=== PATIENT | male | born 1985 | race Caucasian/White ===

== ENCOUNTER 2020-04-05 09:57 | Emergency (ER) | payer OTHER ==
[2020-04-05] MEDS ORDERED: IBUPROFEN 600 MG TABLET (FP) PO ONE ×2 (10:10→10:57)
--- NOTE | 2020-04-05 10:11 | PDOC ---
Rapid Medical Evaluation Chief Complaint: Pain, Acute Time Seen by Provider: 04/05/20 10:08 Medical Evaluation: Allergies Allergy/AdvReac Type Severity Reaction Status Date / Time No Known Allergies Allergy Verified 04/05/20 10:03 Vital Signs Temp Pulse Resp BP Pulse Ox 98.4 F 89 16 129/88 99 04/05/20 10:04 04/05/20 10:04 04/05/20 10:04 04/05/20 10:04 04/05/20 10:04 04/05/20 10:08 The patient presents with L elbow pain starting just prior to arrival. 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 He is reporting pain in the affected extremity and he cannot fully extend the arm. Denies numbness, tingling and weakness to the affected extremity. Exam: distal pulses 2+, DROM to the L elbow, unable to fully extend Orders: X-ray, Motrin Pt to proceed to the ER for further evaluation Discharge Disposition - Diagnosis Elbow pain Qualifiers: Laterality: left Qualified Code(s): M25.522 - Pain in left elbow - Referrals - Patient Instructions - Post Discharge Activity
--- NOTE | 2020-04-05 10:27 | PDOC ---
Attending Attestation - Resident Resident Name: Raymond Aguilera - HPI HPI: 04/05/20 12:04 Pt presents to the ED complaining of the acute onset of L elbow pain after slip and fall down steps today while climbing down from a fire truck. Denies other injuries. Complaining of pain only when elbow is extended. - Physicial Exam PE: 04/05/20 12:11 Agree with resident exam. Patient is alert and oriented x 3 and in no acute distress. L elbow--+ effusion. No deformity. Neurovascularly intact. - Medical Decision Making 04/05/20 12:12 Pt presents to the ED complaining of the acute onset of L elbow pain and sw elling after fall. Denies other injuries. No fracture or dislocation on xray. Will discharge home with instructions to return to the ED for worsening symptoms. Will give follow up with orthopedics. Discharge - Discharge Information Problems reviewed: Yes Clinical Impression/Diagnosis: Elbow pain Qualifiers: Laterality: left Qualified Code(s): M25.522 - Pain in left elbow Disposition: HOME - Follow up/Referral Referrals: Teo Nielsen MD [Staff Physician] - - Patient Discharge Instructions Patient Printed Discharge Instructions: Elbow Sprain, DI for Elbow Sprain Additional Instructions: You were seen in the emergency department for your elbow pain. It appears to be a sprain. We recommend you follow up with the orthopedics doctor in 1 week after discharge for follow care and management. You may need an MRI for additional diagnostic work up. Please take ibuprofen at home, 600 mg every 6 hours as needed for pain. Please return to the emergency department if you have worsening symptoms or new concerning symptoms. Thank you . - Post Discharge Activity Work/Back to School Note: Back to Work
[2020-04-05 10:36] VITALS: TEMP 98.4; BMI 35.4
--- NOTE | 2020-04-05 11:15 | PDOC ---
History of Present Illness - General Chief Complaint: Pain, Acute Stated Complaint: ARM INJURY Time Seen by Provider: 04/05/20 10:08 History Source: Patient Exam Limitations: No Limitations - History of Present Illness Initial Comments: 35 yo M with no pmhx presents to the emergency department with left elbow pain. Per the patient, he was climbing on a ladder when he slipped. He reached out with his left arm and grabbed with his hand on the ladder step, breaking his fall. Denies head trauma and LOC. The patient states after the event, his left elbow began hurting immediately with swelling. In addition, the pain exacerbates when he extends the arm and is better while flexed. Denies the following: fevers, chills, arm tingling, arm numbness, shoulder pain, neck pain, headaches, chest pain, SOB, and abdominal pain. Allergies: NKDA Past History - Medical History Allergies/Adverse Reactions: Allergies Allergy/AdvReac Type Severity Reaction Status Date / Time No Known Allergies Allergy Verified 04/05/20 10:03 Home Medications: Ambulatory Orders No Home Medications 0 dose .ROUTE UTDICT 04/24/14 COPD: No - Immunization History Immunization Up to Date: Yes - Psycho-Social/Smoking History Smoking Status: No Smoking History: Never smoked Number of Cigarettes Smoked Daily: 0 - Substance Abuse Hx (Audit-C & DAST Scrn) How often the patient has a drink containing alcohol: Never Score: In Men: 4 or > Positive; In Women: 3 or > Positive: 0 Screen Result (Pos requires Nsg. Audit-10AR): Negative In the last yr the pt used illegal drug/Rx for NonMed reason: No Score: Yes response is considered Positive: 0 Screen Result (Positive result requires Nsg. DAST-10): Negative Review of Systems - Review of Systems Able to Perform ROS?: Yes Is the patient limited Citizen Of [place] proficient: No Constitutional: No: Chills, Diaphoresis, Fever, Weakness HEENTM: No: Eye Pain, Ear Pain, Nose Pain, Throat Pain Respiratory: No: Cough, Shortness of Breath Cardiac (ROS): No: Chest Pain, Lightheadedness ABD/GI: No: Constipated, Diarrhea, Nausea, Rectal Bleeding, Vomiting, Tarry Stools : No: Dysuria, Hematuria Musculoskeletal: Yes: Joint Pain (left eyebrow). No: Back Pain, Neck Pain Integumentary: No: Bruising, Rash Neurological: No: Headache, Numbness, Tingling, Tremors Psychiatric: No: Change in Appetite Endocrine: No: Unexplained Weight Loss Hematologic/Lymphatic: No: Anemia *Physical Exam - Vital Signs Last Vital Signs Temp Pulse Resp BP Pulse Ox 98.4 F 89 16 129/88 99 04/05/20 10:04 04/05/20 10:04 04/05/20 10:04 04/05/20 10:04/05/20 10:04 - Physical Exam General Appearance: Yes: Nourished, Appropriately Dressed. No: Apparent Distress, Intoxicated HEENT: positive: EOMI, CARMITA, Normal Voice, Symmetrical, Pharynx Normal, Hearing Grossly Normal. negative: Pale Conjunctivae, Scleral Icterus (R), Scleral Icterus (L), Muffled/Hoarse voice, Pharyngeal Erythema, Tonsillar Exudate, Tonsillar Erythema, Nasal Congestion, Rhinorrhea, Sinus Tenderness, Excessive drooling Neck: positive: Trachea midline, Supple. negative: Tender, Lymphadenopathy (R), Lymphadenopathy (L), Tender lateral, Tender midline Respiratory/Chest: positive: Lungs Clear, Normal Breath Sounds. negative: Chest Tender, Respiratory Distress, Accessory Muscle Use, Crackles, Rales, Rhonchi, Stridor, Wheezing Cardiovascular: positive: Regular Rhythm, Regular Rate, S1, S2. negative: Systolic Murmur Gastrointestinal/Abdominal: positive: Normal Bowel Sounds, Flat, Soft. negative: Tender, Distended, Guarding, Rebound Musculoskeletal: negative: CVA Tenderness, Vertebral Tenderness Extremity: positive: Normal Capillary Refill, Tender (along the olecrenon in the left elbow). negative: Normal Inspection (swelling in the left elbow with pain ROM with extension), Normal Range of Motion (limited range of motion in the left elbow) Integumentary: positive: Normal Color, Dry, Warm Neurologic: positive: Fully Oriented, Alert, Normal Mood/Affect, Motor Strength 5/5 (motor strength 5/5 bilaterally in the UE). negative: Sensory Deficit ED Treatment Course - RADIOLOGY Radiology Studies Ordered: Category Date Time Status SHOULDER-LEFT [RAD] Stat Radiology 04/05/20 10:39 Taken WRIST-LEFT [RAD] Stat Radiology 04/05/20 10:39 Taken - Medications Given in the ED: ED Medications Discontinued Medications Generic Name Dose Route Start Last Admin Trade Name Shahnaz PRN Reason Stop Dose Admin Ibuprofen 600 mg 04/05/20 10:10 04/05/20 11:00 Motrin - PO 04/05/20 10:11 600 mg ONCE ONE Administration Medical Decision Making - Medical Decision Making 35 yo M with no pmhx presents to the emergency department with left elbow pain. Initial vitals: Initial Vital Signs Temp Pulse Resp BP Pulse Ox 98.4 F 89 16 129/88 99 04/05/20 10:04 04/05/20 10:04 04/05/20 10:04 04/05/20 10:04 04/05/20 10:04 work up: patient presents to the emergency department with left elbow pain ddx dislocation vs fracture vs sprain Will order xrays to rule out the above hemarthrosis evident on xray of the elbow the patient will be given a sling and follow up with orthopedics in 1 week after discharge for follow up care and management. Dispo: Discharge Discharge - Discharge Information Problems reviewed: Yes Clinical Impression/Diagnosis: Elbow pain Qualifiers: Laterality: left Qualified Code(s): M25.522 - Pain in left elbow Condition: Good Disposition: HOME - Admission No - Follow up/Referral Referrals: Teo Nielsen MD [Staff Physician] - - Patient Discharge Instructions Patient Printed Discharge Instructions: Elbow Sprain, DI for Elbow Sprain Additional Instructions: You were seen in the emergency department for your elbow pain. It appears to be a sprain. We recommend you follow up with the orthopedics doctor in 1 week after discharge for follow care and management. You may need an MRI for additional diagnostic work up. Please take ibuprofen at home, 600 mg every 6 hours as needed for pain. Please return to the emergency department if you have worsening symptoms or new concerning symptoms. Thank you . - Post Discharge Activity Work/Back to School Note: Back to Work
[2020-04-05 12:32] VITALS: BP 126/77; PULSE 74
== END 2020-04-05 12:20 | disposition home or self-care (01) ==
LOC: JER 09:57
DX: M25.522 Pain in left elbow (principal)
CPT/HCPCS: 73030-TC-LT-FY; 73070-TC-LT-FY; 73110-TC-LT-FY; 99284-25

== ENCOUNTER 2021-03-31 10:18 | Emergency (ER) | payer OTHER ==
[2021-03-31 10:24] VITALS: BP 143/86; PULSE 78; TEMP 98.7; BMI 35.4
[2021-03-31] MEDS ORDERED: IBUPROFEN 600 MG TABLET (FP) PO ONE ×2 (11:03→11:11)
== END 2021-03-31 12:13 | disposition home or self-care (01) ==
LOC: JERFT 10:18
DX: S93.401A Sprain of unspecified ligament of right ankle, initial encounter (principal)
CPT/HCPCS: 73610-TC-RT-FY; 73630-TC-RT-FY; 99283-25